=== PATIENT | male | born 1980 | race Caucasian/White ===

== ENCOUNTER 2017-09-16 18:21 | Inpatient (IN) | payer BC ==
[~2017-09-16] VITALS: Ht 175.3 cm; Wt 86.0 kg
--- NOTE | 2017-09-16 18:33 | NUR ---
PT SENT TO LOBBY TO WAIT FOR AVAILABLE BED. NO DISTRESS NOTED AND ALERT AND ORIENTED
--- NOTE | 2017-09-16 19:34 | NUR ---
DR GROSS AT BEDSIDE FOR MSE.
--- NOTE | 2017-09-16 19:45 | NUR ---
LAB AT BEDSIDE FOR BLOOD DRAW.
[2017-09-16 20:20] LABS: PLATELET COUNT 191 x10^3mcL (130-400); RED CELL DISTRIBUTION WIDTH 12.7 % (11.5-14.5)
--- NOTE | 2017-09-16 20:20 | NUR ---
MEDICATED PT FOR PAIN. PLEASE SEE EMAR.
[2017-09-16 20:39] LABS: CALCIUM 9.6 mg/dL (8.5-10.1); CARBON DIOXIDE 25.8 mmol/L (21-32); CHLORIDE SERUM 99 mmol/L (98-107); CREATININE SERUM 1.2 mg/dL (0.7-1.3); GFR1 > 60 mL/min; GLUCOSE SERUM 123 mg/dL (74-106); POTASSIUM SERUM 3.5 mmol/L (3.5-5.1); SODIUM SERUM 135 mmol/L (136-145)
[2017-09-16 20:41] LABS: BAND NEUTROPHIL 8 % (0-10); BASOPHIL 0 % (0-2); MONOCYTE 5 % (0-7); SEGMENTED NEUTROPHILS 80 % (37-75)
[2017-09-16 20:42] LABS: FREE T4 1.18 ng/dL (0.76-1.46); FREE THYROXINE INDEX 4.1 ug/dL (1.4-4.5); T4(THYROXINE) 11.8 ug/dL (4.7-13.3); rbc morphology (normal/abnorm) ABNORMAL (NORMAL)
[2017-09-16 20:53] LABS: ALBUMIN 4.2 g/dL (3.4-5.0); ALKALINE PHOSPHATASE 72 U/L (46-116); ALT/SGPT 34 U/L (16-63); AST/SGOT 21 U/L (15-37); BILIRUBIN TOTAL 1.37 mg/dL (0.20-1.00); C REACTIVE PROTEIN 5.3 mg/dL (<=0.9)
[2017-09-16 20:53] LABS: UA SPECIFIC GRAVITY 1.015 (1.005-1.035); microscopic required? YES; urine erythrocyte 1+ (NEGATIVE)
[2017-09-16 20:55] LABS: T3 TOTAL 1.12 ng/mL
[2017-09-16 21:07] LABS: ERYTHROCYTE SED RATE 15 mm/hr (0-15)
[2017-09-16 21:18] LABS: CK-MB 0.5 ng/mL (0-3.6)
--- NOTE | 2017-09-16 21:27 | NUR ---
INITATED 2ND BOLUS. PER DR GROSS, CHRIS FOR BOLUS.
--- NOTE | 2017-09-16 21:35 | NUR ---
PT TAKEN TO CT VIA RANGLE.
--- NOTE | 2017-09-16 22:54 | NUR ---
INITIATED 500 ML BOLUS AND 2GM CEFOXTIN @100ML/HR. PLEASE SEE EMAR.
--- NOTE | 2017-09-16 23:46 | NUR ---
REPORT GIVEN RN AMEYA TO ASSUME CARE OF THE PT.
[2017-09-17 00:13] VITALS: BP 144/94
--- NOTE | 2017-09-17 00:17 | NUR ---
RECEIVED PT FROM ED VIA SULMA. ORIENTED PT TO ROOM AND SURROUNDINGS. IV NOTED TO RAC PATENT AND INTACT. TELE 40 PLACED ON PT READNIG NSR. INSTRUCTED PT ON THE USE OF CALL LIGHT FOR ASSISTANCE. ENDORSD PT TO PRIMARY NURSE SERGO
--- NOTE | 2017-09-17 00:17 | NUR ---
RECEIVED PT FROM AMEYA RN. PT A/OX4. DENIES SOB ON RA. NEW IV STARTED TO LFA BY NICHOL ARRIETA. OLD IV REMOVED. PT C/O PAIN TO ABD. WILL MEDICATE PRN PER EMAR. PT ORIENTED TO ROOM AND SURROUNDINGS. CALL LIGHT WITHIN REACH, BED IN LOW POSITION. WILL CONTINUE TO MONITOR.
[2017-09-17 00:20] LABS: MAGNESIUM 1.9 mg/dL (1.8-2.4); PHOSPHOROUS 1.3 mg/dL (2.5-4.9)
[2017-09-17 00:22] LABS: CHOLESTEROL/HDL RATIO 1.9
[2017-09-17 02:22] LABS: AMPHETAMINE QUAL UR NONE DETECTED (NEG <=1000)
[2017-09-17 05:15] VITALS: BP 121/77
[2017-09-17 06:00] LABS: BASOPHIL % 0.2 % (0-2); PLATELET COUNT 151 x10^3mcL (130-400); RED CELL DISTRIBUTION WIDTH 13.2 % (11.5-14.5)
[2017-09-17 06:27] LABS: CARBON DIOXIDE 24.4 mmol/L (21-32); CHLORIDE SERUM 107 mmol/L (98-107); CREATININE SERUM 0.9 mg/dL (0.7-1.3); GFR1 > 60 mL/min; GLUCOSE SERUM 106 mg/dL (74-106); MAGNESIUM 1.8 mg/dL (1.8-2.4); PHOSPHOROUS 3.3 mg/dL (2.5-4.9); POTASSIUM SERUM 3.5 mmol/L (3.5-5.1); SODIUM SERUM 140 mmol/L (136-145)
--- NOTE | 2017-09-17 07:32 | NUR ---
PT WAS ENDORSE TO ME THIS MORNING. AA/O X4. TELE 40 NSR. HR 74. BREATHING EVEN AND UNLABORED, NO RESP DISTRESS OR SOB NOTED. PT DENIES ANY ABD PAIN AT THIS TIME. IS MEDICATED PER EMAR. LUNGS CLEAR ON RA. IV TO THE RFA INFUSING AT 130ML/HR, INTACT. PT DENIES ANY CHEST PAIN OR DISCOMFORT AT THIS TIME. WILL CONTINUE PLAN OF CARE.
[2017-09-17 08:00] VITALS: BP 116/78
--- NOTE | 2017-09-17 08:12 | NUR ---
PT C/O ABD PAIN 05/18, MEDICATED PER EMAR. AND C/O N/V, MEDICATED WITH ZOFRAN.
--- NOTE | 2017-09-17 08:40 | NUR ---
CONSENT FOR LAP APPY SIGNED. WIPES DONE. REPORT GIVEN TO JANIA FROM OR.
--- NOTE | 2017-09-17 10:05 | NUR ---
PT WAS TAKEN TO OR FOR PROCEDURE. AA/O X4, TELE 40 REMOVED. VS STABLE. BREATHING EVEN AND UNLABORED, NO RESP DISTRESS OR SOB NOTED. PT DENIES ANY CHEST PAIN OR ABD DISCOMFORT AT THIS TIME. IV TO THE RFA HEPLOCKED, PATENT AND INTACT. WILL CONTINUE PLAN OF CARE WHEN PT RETURNS. PT MOTHER BY HIS SIDE.
--- NOTE | 2017-09-17 12:10 | NUR ---
PT BACK FOR OR. AA/O X4, TELE 40. VS STABLE. BREATHING EVEN AND UNLABORED, NO RESP DISTRESS OR SOB NOTED. PT HAS 3 BANDAIDS AND ONE SMALL DRESSING AT ABD. INTACT AND NO DRAINAGE NOTED. PT DENIES ANY PAIN OR DISCOMFORT AT THIS TIME. RECONNECTED IV TO THE RFA 130ML/HR, INTACT AND PATENT. CALL LIGHT IN REACH .BED IN LOW POSITION. WILL CONTINUE PLAN OF CARE.
--- NOTE | 2017-09-17 13:53 | NUR ---
PT C/O ABD PAIN 07/19. REFUSE MORPINE, MEDICATED WITH TORADOL IV.
[2017-09-17 17:19] VITALS: BP 122/86
--- NOTE | 2017-09-17 18:36 | NUR ---
PT IS SITTING UP IN BED WITH GIRLFRIEND BY HIS SIDE. PT TOLERATED 100% OF CLEAR LIQ DINNER. DENIES ANY N/V. BREATHING EVEN AND UNLABORED ON RA. NO RESP DISTRESS OR SOB NOTED.INCENTTIVE SPIROMETER AT BEDSIDE. DENIES ANY ABD PAIN AT THIS TIME. PT IS MEDICATED PER EMAR. IV TO THE RFA INTACT AND PATENT. WILL ENDORSE PT TO INCOMING RN.
--- NOTE | 2017-09-17 19:21 | NUR ---
RECEIVED PT FROM PREVIOUS SHIFT. PT A/OX4. FAMILY AT BEDSIDE. DENIES SOB ON RA. IV PATENT AND INFUSING NS AT 130ML/HR PER EMAR WITH NO S/S OF INFILTRATION. BANDAIDS X3 TO ABD AND DRESSING CDI S/P LAP APPY. PT C/O 07/19 PAIN AND REQUESTING TORADOL TO BE GIVEN AT 194. CALL LIGHT WITHIN REACH, BED IN LOW POSITION. WILL CONTINUE TO MONITOR.
[2017-09-17 21:42] VITALS: BP 131/76
[2017-09-18 05:49] VITALS: BP 114/70
[2017-09-18 06:38] LABS: BASOPHIL % 0.2 % (0-2); PLATELET COUNT 142 x10^3mcL (130-400); RED CELL DISTRIBUTION WIDTH 13.5 % (11.5-14.5)
--- NOTE | 2017-09-18 07:31 | NUR ---
RECEIVED PT LAYING IN BED AWAKE AND ALERT. DENIES PAIN AT THIS TIME. NO APPARENT SIGNS OF ACUTE DISTRESS NOTED. RESPIRATIONS EVEN AND UNLABORED. IV TO RFA APPEARS PATENT AND INFUSING WELL. PT STATES THAT HE WOULD LIKE TO GO HOME TODAY. LET PT KNOW THAT THE MORNING ROUNDS WOULD BE AROUND 0800 AND THAT THE MEDICAL TEAM WILL TALK ABOUT THE PLAN OF CARE SCHEDULED. PT RECEPTIVE. CALL LIGHT WITHIN REACH. BED IN LOWEST POSITION. ENCOURAGED TO CALL FOR ASSISTANCE WHEN NEEDED. WILL CONTINUE TO MONITOR
--- NOTE | 2017-09-18 08:30 | NUR ---
AM ROUNDS DONE. PER DR. FITCH, PT WILL MOST LIKELY DISCHARGE LATER TODAY AND F/U WITH DR. CHRISTIANSEN AND PCP, AND PT WAS INSTRUCTED TO NOT DO ANY HEAVY LIFTING FOR ABOUT 10 DAYS. PT AAO x4, AND APPEARED RECEPTIVE. CALL LIGHT WITHIN REACH, MOTHER AND FIANCE AT BEDSIDE. WILL CONTINUE TO MONITOR
[2017-09-18 09:51] VITALS: BP 123/68
--- NOTE | 2017-09-18 10:02 | NUR ---
PT C/O ABDOMEN PAIN 05/18. STATES THAT HE WAS WALKING AROUND AND HAD A COUGH A LITTLE BIT AGO. ENCOURAGED TO RELAX AND TAKE DEEP BREATHES. PT ALSO C/O THAT HE IS PASSING GAS BUT NOT MUCH HE COULD. SPOKE TO DR. STONE AND REQUESTED GAS TAB. PT WAS GIVEN TORADOL IVP PRN FOR PAIN. CALL LIGHT WITHIN REACH. MOTHER AT BEDSIDE. WILL CONTINUE TO MONITOR
--- NOTE | 2017-09-18 11:15 | NUR ---
PT SHOWERED WITH ORDER. PT STATES THAT HE FEELS BETTER AND WAS ABLE TO WALK AROUND A LITTLE BIT AND THAT THE GAS TAB HELPED, BUT STILL NO BM AT THIS TIME. MOTHER AT BEDSIDE. CALL LIGHT WITHIN REACH. WILL CONTINUE TO MONITOR
[2017-09-18 13:17] VITALS: BP 118/77
[2017-09-18 17:11] VITALS: BP 135/84
--- NOTE | 2017-09-18 19:35 | NUR ---
SHIFT REASSESSMENT DONE.PATIENT ALERT AND ORIENTED.MAKE NEEDS KNOWN TO STAFF.BREATHING EASY,IS WA.AMBULATORY.NS ORDERED.TELE 40 NSR.HAD APPY,11/ BANDAIDS X 3,DRESSING INTACT,10 PUJA REPORTED.SCD ORDERED/PAIN MED ORDERED.CALL LIGHT IN REACH.
--- NOTE | 2017-09-18 20:57 | NUR ---
NEW IV PUMP AT THIS TIME,OLD ONE IS NOT RECHARGING/BATTERY.NEW BAG ALSO.
--- NOTE | 2017-09-18 20:59 | NUR ---
HAD BM JUST NOW.
--- NOTE | 2017-09-18 21:01 | NUR ---
WAS VISITING,SUPPORTIVE OF CARE.
--- NOTE | 2017-09-18 21:54 | NUR ---
PATIENT DID NOT TAKE NORCO,WANTING PAIN SHOT.DR HAWKINS MADE AWARE.
--- NOTE | 2017-09-18 22:04 | NUR ---
DR HAWKINS MADE AWARE THAT TORADOL IS ONLY ONE TIME ORDER.WILL ORDER.
--- NOTE | 2017-09-18 22:07 | NUR ---
TORADOL NOT VERIFIED YET,PHARMACY AWARE.
--- NOTE | 2017-09-19 01:27 | NUR ---
CHECKED AT INTERVALS,BOTHERED BY THE SOUND OF IV,RATE IS AT 130 CC/ HOUR.LOWERED IT BUT IT SOUND THE SAME.
--- NOTE | 2017-09-19 03:50 | NUR ---
PATIENT WANTING HIS PAIN SHOT TORADOL IV WHEN DUE, HE STATED EARLIER WHEN I GAVE IT AT 2211.
[2017-09-19 05:30] VITALS: BP 109/79
--- NOTE | 2017-09-19 06:08 | NUR ---
I AND O MEASURED.NS AT 130 CC/ HOUR.AMBULATING TO RESTROOM.HAD BM THIS SHIFT SAYS LOOSE,MAYBE EFFECT OF ATB.WILL ENDORSE TO NEXT SHIFT.
[2017-09-19 06:12] LABS: BASOPHIL % 0.2 % (0-2); PLATELET COUNT 139 x10^3mcL (130-400); RED CELL DISTRIBUTION WIDTH 12.7 % (11.5-14.5)
--- NOTE | 2017-09-19 07:05 | NUR ---
PT SITTING AT BEDSIDE CHAIR. AWAKE, COOPERATIVE OF CARE. REPORTS DISCOMFORT TO ABDOMINAL SURGICAL INCISIONS. IV INFUSING WELL TO LFA NS 130ML/HR #22. CALL LIGHT WITHIN REACH.
[2017-09-19 09:16] VITALS: BP 127/85
--- NOTE | 2017-09-19 13:00 | NUR ---
PASSED [facility]. PT TOLERATED WELL. PT HAD SHOWER REPORTS COMFORT AT MOMENT. PICTURE OF SURGICAL SITE TAKEN. CALL LIGHT WITHIN REACH.
[2017-09-19 13:36] VITALS: BP 122/86
[2017-09-19] MEDS ORDERED: HYDROCODONE BIT1 T52 PO (15:06)
[2017-09-19] MEDS ORDERED: COL100 PO (15:34)
[2017-09-19] MEDS ORDERED: SIMETHICONE80 MG CH (15:34)
[2017-09-19 15:43] VITALS: BP 122/86
--- NOTE | 2017-09-19 16:10 | NUR ---
DISCHARGE INSTRUCTIONS GIVEN TO PT. PT VERBALIZED UNDERSTANDING FOR FOLLOW UP APPOINTMENT AND PRESCRIPTION ORDERS. DR. CHRISTIANSEN'S PHONE NUMBER PROVIDED TO PT. PT VERBALIZED UNDERSTANDING. TELE BOX REMOVED, IV DC'D CATHETER INTACT. PT ESCORTED OUT OF UNIT SAFELY.
== END 2017-09-19 16:20 | disposition home or self-care (01) | DRG 853 ==
LOC: ED 18:21 → DU 23:28
PROVIDERS: Family Medicine; Specialist; Surgery; ADMIT Family Medicine Sports Medicine
PROC: 0DTJ4ZZ Resection of Appendix, Percutaneous Endoscopic Approach (ICD-10-PCS; principal; 2017-09-17 10:30)
DX: A41.9 Sepsis, unspecified organism (principal); N17.0 Acute kidney failure with tubular necrosis; K35.80 Unspecified acute appendicitis; E87.1 Hypo-osmolality and hyponatremia; K56.7 Ileus, unspecified; K21.9 Gastro-esophageal reflux disease without esophagitis; R80.9 Proteinuria, unspecified; E83.39 Other disorders of phosphorus metabolism; R31.9 Hematuria, unspecified; F12.90 Cannabis use, unspecified, uncomplicated; Z53.29 Procedure and treatment not carried out because of patient's decision for other reasons; E80.6 Other disorders of bilirubin metabolism; Z68.28 Body mass index [BMI] 28.0-28.9, adult; Z82.49 Family history of ischemic heart disease and other diseases of the circulatory system; Z83.3 Family history of diabetes mellitus; Z72.89 Other problems related to lifestyle
CPT/HCPCS: 83880; 84439; 94150; J0330; J0690; J0694; J1170; J1885; J2270; J2405; J2704; J2710; J3010; J3490; J7030; J7040; J7120